=== PATIENT | male | born 1955 | race Native Hawaiian/Other Pacific Islander ===

== ENCOUNTER 2025-08-28 12:38 | Emergency (ER) | payer OTHER, SELFPAY ==
[2025-08-28] VITALS (23 sets, daily range): BP systolic 169–211; BP diastolic 100–126; PULSE 55–72; RESP 12–24; TEMP 36.6; O2SAT 94–97
--- NOTE | 2025-08-28 13:02 | ED_ITS ---
HPI - General Adult General Chief complaint: Chest Pain Stated complaint: Chest pain, high blood pressure Time Seen by Provider: 08/28/25 12:52 History of Present Illness HPI narrative: Patient presents to the emergency department complaining of GI pain. Patient states when he swallows even his saliva he gets pain from his throat to his stomach. Patient denies any nausea or vomiting. Pain has been going on for about 1 hour. Patient is also experiencing pain in his chest. 69-year-old man presenting to the emergency department with concern chest area pain. Apparently about an hour after eating breakfast started to have this pulsatile poking pain that goes from his throat down to his abdomen. It does last for some seconds and then resolves and then returns. Watching on monitor is throwing PVCs but these appear to be asymptomatic. Does not seem to have sore throat otherwise. Is not feeling lightheaded. No headache. They report a history of 2 strokes with some residual right arm numbness and temporary diplopia. Last stroke was June of last year. Sounds like was evaluated in [place]. Had diplopia for some months but that has now resolved. Does not take an aspirin regularly currently. Sounds as though have been getting contrary recommendations about taking it. Has a longstanding history of high blood pressure and takes metoprolol 50 mg daily. Has been taking it for the last couple of days but I believe missed the morning dose today. He had been without it for about 4 days. Was having some right hand pain and took a couple naproxen this morning. Related Data Allergies Allergy/AdvReac Type Severity Reaction Status Date / Time No Known Drug Allergies Allergy Verified 08/28/25 12:52 Review of Systems Status of ROS: Reports: 6 or more systems reviewed and unremarkable except as noted in History and below Exam Narrative: Exam Narrative: Pleasant. NAD. Breathing easily. Cranial nerves 2-12 intact. Funduscopic exam is challenging. Lungs are clear. Heart in regular to slower rate with intermittent ectopic beat I think. Abdomen is overweight soft nontender. No reproduction of chest pain to palpation across the chest wall. Extremities are well perfused. Without edema. Oropharynx is rather thick posteriorly. 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 Const: Vital Signs, click to edit/add: Vital Signs - 24 hr 08/28/25 12:43 08/28/25 13:05 08/28/25 13:06 Temperature 97.9 F Pulse Rate 55 L 63 Pulse Rate [Right Pulse Oximeter] 58 L Respiratory Rate 18 20 14 Blood Pressure 194/126 H Blood Pressure [Ri ght Upper Arm] 188/100 H Pulse Oximetry 97 94 94 Oxygen Delivery Me thod Room Air 08/28/25 13:15 08/28/25 13:30 08/28/25 13:35 Temperature Pulse Rate 66 57 L 59 L Pulse Rate [Right Pulse Oximeter] Respiratory Rate 15 22 Blood Pressure 211/119 H Blood Pressure [Ri ght Upper Arm] Pulse Oximetry 96 95 95 Oxygen Delivery Me thod 08/28/25 13:36 08/28/25 13:52 08/28/25 14:00 Temperature Pulse Rate 60 67 67 Pulse Rate [Right Pulse Oximeter] Respiratory Rate 24 12 20 Blood Pressure Blood Pressure [Ri ght Upper Arm] Pulse Oximetry 95 96 96 Oxygen Delivery Me thod 08/28/25 14:02 08/28/25 14:15 08/28/25 14:30 Temperature Pulse Rate 63 55 L 64 Pulse Rate [Right Pulse Oximeter] Respiratory Rate 17 18 Blood Pressure 192/116 H Blood Pressure [Ri ght Upper Arm] Pulse Oximetry 96 97 95 Oxygen Delivery Me thod 08/28/25 14:32 08/28/25 14:45 08/28/25 15:00 Temperature Pulse Rate 63 60 61 Pulse Rate [Right Pulse Oximeter] Respiratory Rate 14 19 18 Blood Pressure 184/113 H Blood Pressure [Ri ght Upper Arm] Pulse Oximetry 95 96 94 Oxygen Delivery Me thod 08/28/25 15:02 08/28/25 15:03 08/28/25 15:17 Temperature Pulse Rate 68 71 72 Pulse Rate [Right Pulse Oximeter] Respiratory Rate 20 Blood Pressure 187/115 H Blood Pressure [Ri ght Upper Arm] Pulse Oximetry 94 95 96 Oxygen Delivery Me thod 08/28/25 15:30 08/28/25 15:32 08/28/25 15:45 Temperature Pulse Rate 60 68 70 Pulse Rate [Right Pulse Oximeter] Respiratory Rate 19 22 Blood Pressure 184/109 H Blood Pressure [Ri ght Upper Arm] Pulse Oximetry 96 95 96 Oxygen Delivery Me thod 08/28/25 16:00 08/28/25 16:01 Temperature Pulse Rate 69 69 Pulse Rate [Right Pulse Oximeter] Respiratory Rate 15 18 Blood Pressure 169/103 H Blood Pressure [Ri ght Upper Arm] Pulse Oximetry 96 94 Oxygen Delivery Me thod Documenting provider has reviewed patient's vital signs: yes Course Vital Signs Vital signs: Initial Vital Signs Temperature 97.9 F 08/28/25 12:43 Temperature Source Temporal Artery Scan 08/28/25 12:43 Pulse Rate 58 L 08/28/25 12:43 Pulse Rhythm Regular 08/28/25 12:43 Pulse Strength 3+ Normal 08/28/25 12:43 Respiratory Rate 18 08/28/25 12:43 Blood Pressure 188/100 H 08/28/25 12:43 Blood Pressure Mean 129 H 08/28/25 12:43 Blood Pressure Position Supine 08/28/25 12:43 Pulse Oximetry 97 08/28/25 12:43 Oxygen Delivery Method Room Air 08/28/25 12:43 Vital Signs Temperature 97.9 F 08/28/25 12:43 Pulse Rate 58 L 08/28/25 12:43 Respiratory Rate 18 08/28/25 12:43 Blood Pressure 188/100 H 08/28/25 12:43 Pulse Oximetry 97 08/28/25 12:43 Oxygen Delivery Method Room Air 08/28/25 12:43 Temperature 97.9 F 08/28/25 12:43 Pulse Rate 69 08/28/25 16:01 Respiratory Rate 18 08/28/25 16:01 Blood Pressure 169/103 H 08/28/25 16:01 Pulse Oximetry 94 08/28/25 16:01 Oxygen Delivery Method Room Air 08/28/25 12:43 Medications Administered Medications: Discontinued Medications Generic Name Dose Route Start Last Admin Trade Name Jaziel PRN Reason Stop Dose Admin Amlodipine Besylate 5 mg 08/28/25 14:36 08/28/25 15:07 Amlodipine 5 Mg Tablet PO 08/28/25 14:37 5 mg ONCE ONE Administration Aspirin 81 mg 08/28/25 14:38 08/28/25 15:06 Aspirin 81 Mg Tab.Chew PO 08/28/25 14:39 81 mg ONCE ONE Administration Carvedilol 12.5 mg 08/28/25 14:36 08/28/25 15:06 Carvedilol 6.25 Mg Tablet PO 08/28/25 14:37 12.5 mg ONCE ONE Administration Chlorthalidone 25 mg 08/28/25 14:36 08/28/25 15:07 Chlorthalidone 25 Mg Tablet PO 08/28/25 14:37 25 mg ONCE ONE Administration Lidocaine/Aluminum/Magnesium/Simeth 30 ml 08/28/25 13:27 08/28/25 14:05 Gi Cocktail (Visc Lido/Antacid) 30 Ml PO 08/28/25 13:28 30 ml ONCE ONE Administration Medical Decision Making MDM Narrative Medical decision making narrative: Concern this could be ischemic cardiovascular disease. Seems relatively mild in description. Does not have stroke symptoms currently. I do not think pressures are likely to represent malignant hypertension. Discomfort as described might be reflux related. Does not seem to be pleuritic. Initial EKG is generally reassuring. Labs are unremarkable. Did offer GI cocktail which he did take. Symptoms already been settling a little bit but resolved after this dosing. Did show numerous PVCs during time of monitoring but did not seem to correlate with symptoms that he was describing. These were unifocal. Was able to reach provider from clinic at [facility] where he usually gets care. Able to review records and confirmed past medical and medications Mr. Brown is expected to be taking. He was given all of these medications though only half the expected dose of amlodipine. Is not actually to be taking metoprolol; this has someone else's name on it. There appears to be some confusion. Spent some discussing past medical and reasons for medications and actions of these medications. See patient discharge plan for further discussion I am not exactly sure what was causing this poking sensation in your chest. You do have some irregular heartbeats that are not serious and they do not seem to correlate with the chest discomfort you were describing; but evidently with your hand pain for some curious reason. As you know I spoke with Dr. Reynolds to clarify your medication and treatment. It sounds like you have appointment already established with her/[facility] for next week. Please do not take medications that do not have your name on them. I am prescribing the following medications for you to take daily based on what your clinic and doctor think you are or should be taking -- Amlodipine 10 mg daily Carvedilol 12.5 mg 2 times daily Chlorthalidone 25 mg daily Coated aspirin 81 mg daily The 1st 3 are specifically for your blood pressure. The aspirin is because you apparently have had some strokes. You received all of these medications here but only 5 mg of amlodipine to start with today instead of the usual 10 mg that you will be taking going forward. You will need to take another dose of carvedilol yet this evening. It was a pleasure to care for you here today. Medical Records Medical records reviewed: Yes I reviewed the patient's medical records Lab Data Lab results reviewed: Yes I reviewed the patient's lab results Labs: Lab Results 08/28/25 08/28/25 08/28/25 Range/Units 13:25 13:40 13:48 WBC 10.22 (4.50-11.00) K/uL RBC 5.38 (4.30-5.90) m/uL Hgb 15.8 (13.5-17.5) gm/dL Hct 45.3 (37.0-53.0) % MCV 84 (80-100) fL MCH 29 (26-34) pg MCHC 35 (32-36) gm/dL RDW Coeff of Reginald 12.7 (11.5-15.5) % Plt Count 269 (140-440) K/uL Neut % (Auto) 69.1 (42.0-72.0) % Lymph % (Auto) 21.9 (20-44) % [place] % (Auto) 7.6 (0.0-11.0) % Eos % (Auto) 1.2 (0.0-7.0) % Baso % (Auto) 0.1 (0.0-3.0) % Neut # (Auto) 7.06 H (1.7-7.0) K/uL Lymph # (Auto) 2.24 (0.90-2.90) K/uL [place] # (Auto) 0.80 (0.00-0.90) K/UL Eos # (Auto) 0.12 (0.00-0.50) K/uL Baso # (Auto) 0.01 (0.00-0.30) K/uL Abs Immat Gran (auto) 0.01 (0.00-0.30) K/uL Imm/Tot Granulo (auto) 0.1 % Sodium 137 (135-149) mmol/L Potassium 3.3 L (3.6-5.1) mmol/L Chloride 97 (96-114) mmol/L Carbon Dioxide 31 (20-32) mmol/L Anion Gap 9 (7-15) mEq/L BUN 13 (7-30) mg/dL Creatinine 1.0 (0.5-1.5) mg/dL Estimated GFR 81 ml/min Glucose 132 H (60-115) mg/dL Calcium 9.0 (8.4-10.6) mg/dL Total Bilirubin 1.4 (0.1-1.5) mg/dL Direct Bilirubin 0.3 (0.0-0.5) mg/dL AST 24 (12-35) U/L ALT 14 (4-50) U/L Alkaline Phosphatase 112 (40-150) U/L Troponin I < 0.01 (0.01-0.04) ng/mL Total Protein 7.7 (6.0-8.3) g/dL Albumin 3.7 (3.3-5.0) g/dL Urine Color Yellow (Yellow) Urine Appearance Clear (Clear) Urine pH 6.5 (5.0-8.5) Ur Specific [place] 1.010 (1.000-1.030) Urine Protein Negative (Negative) Urine Glucose (UA) Negative (Negative) Urine Ketones Negative (Negative) Urine Blood Trace-intact A (Negative) Urine Nitrite Negative (Negative) Urine Bilirubin Negative (Negative) Urine Urobilinogen 2.0 A (0.2-1.0) Ur Leukocyte Esterase Negative (Negative) Urine RBC 0-2 (0-2) Urine WBC 0-2 (0-5) Ur Squamous Epith Cells None (None-Few) Urine Bacteria None (None) POC Troponin I 0.00 L (0.01-0.04) ng/ml ECG Data Attestation: I personally reviewed and interpreted this ECG as follows: (Normal sinus rhythm. I do not appreciate ischemic changes. Rate of 66. repeatedly wandering baseline in V1) Discharge Plan Discharge Clinical Impression: Atypical chest pain, Premature ventricular contraction, High blood pressure Patient Disposition: Home w/ Parent or Adult Condition: Improved Additional Instructions: I am not exactly sure what was causing this poking sensation in your chest. You do have some irregular heartbeats that are not serious and they do not seem to correlate with the chest discomfort you were describing; but evidently with your hand pain for some curious reason. As you know I spoke with Dr. Reynolds to clarify your medication and treatment. It sounds like you have appointment already established with her/[facility] for next week. Please do not take medications that do not have your name on them. I am prescribing the following medications for you to take daily based on what your clinic and doctor think you are or should be taking -- Amlodipine 10 mg daily Carvedilol 12.5 mg 2 times daily Chlorthalidone 25 mg daily Coated aspirin 81 mg daily The 1st 3 are specifically for your blood pressure. The aspirin is because you apparently have had some strokes. You received all of these medications here but only 5 mg of amlodipine to start with today instead of the usual 10 mg that you will be taking going forward. You will need to take another dose of carvedilol yet this evening. It was a pleasure to care for you here today. No estoy seguro de qu? le causaba dante sensaci?n de pinchazo en el pecho. Tiene latidos irregulares que no son graves y no parecen estar relacionados con la molestia en el pecho que describ?a; kira evidentemente, por alguna extra?a marsha?n, con el dolor en la mano. [place] sabe, habl? con la Dra. Reynolds para aclarar patrick medicaci?n y tratamiento. Parece que ya tiene dalton con [facility] para la pr?xima semana. Por favor, no tome medicamentos que no tengan patrick nombre. Le receto los siguientes medicamentos para que los tome a diario, seg?n lo que patrick cl?sreedhar y patrick m?dico consideren que est? o deber?a estar tomando: Amlodipino 10 mg al d?a Carvedilol 12,5 mg 2 veces al d?a Clortalidona 25 mg al d?a Aspirina recubierta 81 mg al d?a Los jean-paul primeros son espec?ficos para la presi?n arterial. La aspirina se debe a que, al parecer, cuevas sufrido varios accidentes cerebrovasculares. Recibi? todos estos medicamentos aqu?, kiar solo 5 mg de amlodipino para empezar hoy, en lugar de los 10 mg habituales que benji? de ahora en adelante. Necesitar? benji otra dosis de carvedilol esta noche. Fue un placer atenderle hoy aqu?. Follow Up/Referrals: Provider,Not a Local [Primary Care Provider, Family Practice] Stand Alone Forms: [facility] Inst[facility]
[2025-08-28 13:48] LABS: Hematocrit* 45.3 % (37.0-53.0); Hemoglobin* 15.8 gm/dL (13.5-17.5); Immature Granulocytes Abs Auto 0.01 K/uL (0.00-0.30); Immature Granulocytes Pct Auto 0.1 %; Lymphocytes Absolute Auto 2.24 K/uL (0.90-2.90); Mean Corpuscular HGB Conc 35 gm/dL (32-36); Mean Corpuscular Hemoglobin 29 pg (26-34); Mean Corpuscular Volume 84 fL (80-100); RDW Coefficient of Variation % 12.7 % (11.5-15.5); Red Blood Count* 5.38 m/uL (4.30-5.90); White Blood Count* 10.22 K/uL (4.50-11.00)
[2025-08-28 13:57] LABS: Troponin, Point-of-Care* 0.00 ng/ml (0.01-0.04)
[2025-08-28 14:02] LABS: Appearance Urine Clear (Clear)
[2025-08-28 14:03] LABS: Slide Review Reflex No
[2025-08-28] MEDS: GI COCKTAIL (VISC LIDO/ANTACID) 30 ML PO (14:05)
[2025-08-28 14:09] LABS: Albumin* 3.7 g/dL (3.3-5.0); Chloride* 97 mmol/L (96-114); Potassium* 3.3 mmol/L (3.6-5.1); Sodium* 137 mmol/L (135-149)
--- OUTSIDE RECORDS SUMMARY | 2025-08-28 14:09 | XMS_ITS | Clinical Summary ---
[facility] Address [address], [place] [address] Care Team Providers Care Industrial Electrician Journeyman Name Role Phone Unavailable Primary Care Provider Unavailabl e Source Comments You are receiving this document as you are listed as the primary care provider,follow-up provider, or the patient has been referred to you for consultation.This is in compliance with the Medicare andOhiohealth Mans[facility] Hospitalcaid EHR Incentive Program,which states Providers who transition their patient to another setting of careor provider of care or refers their patient to another provider of care shouldprovide summary care record for each transition of care or referral. [facility] Allergies No known active allergies Medications diclofenac (VOLTAREN) 1 % gelIndications :gout pain Apply 2 g to skin 4 times a day. Indications: gout pain 400 g 3 06/10/2024 6:12 PM CDT 06/08/20 24 Active amLODIPine (NORVASC) 10 MG tabletIndicati ons:Hypertensi on,stroke Take 1 Tablet (10 mg) by mouth daily. Indications: High Blood Pressure Disorder, stroke 90 Tablet 3 06/10/2024 6:12 PM CDT 06/10/20 24 Active atorvastatin (LIPITOR) 20 MG tabletIndicati ons:Cerebrovas cular Accident Take 1 Tablet (20 mg) by mouth every evening. Indications: Cerebrovascular Accident or Stroke 90 Tablet 3 06/10/2024 6:12 PM CDT 06/10/20 24 Active lidocaine (ASPERCREAM) 4 % patchIndicatio ns:pain in elbow Apply 1 Patch to skin daily. Leave on for up to 12 hours in a 24 hour period, then remove. Indications: pain in elbow 30 Each 06/10/2024 6:12 PM CDT 06/10/20 24 Active carvedilol (COREG) 25 MG tabletIndicati ons:Hypertensi on Take 1 Tablet (25 mg) by mouth two times a day with meals. Indications: High Blood Pressure Disorder 180 Tablet 3 06/10/2024 6:12 PM CDT 06/10/20 24 Active chlorthalidone (HYGROTON) 25 MG tabletIndicati ons:Hypertensi on Take 1 Tablet (25 mg) by mouth daily. 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 No 06/06/2024 Humiliation, Afraid, Rape, and Kick questionnair e Answer Date Recorded Fear of Current or Ex-Partner Not on file Within the last year, have y ou been humiliated or emotionally abused in other ways by your partner or ex-partner? No 06/06/2024 Within the last year, have y ou been kicked, hit, slapped, or otherwise physically hurt by your partner or ex-partner? No 06/06/2024 Within the last year, have y ou been raped or forced to have any kind of sexual activity by your partner or ex-partner? No 06/06/2024 Hunger Vital Sign Answer Date Recorded Within the past 12 months, y ou worried that your food would run out before you got the money to buy more. Never true 06/06/20 24 Within the past 12 months, t he food you bought just didn't last and you didn't have money to get more. Never true 06/06/2024 PRAPARE - Transportation Answer Date Re corded In the past 12 months, has l ack of transportation kept you from medical appointments or from getting medications? No 11/2023 In the past 12 months, has l ack of transportation kept you from meetings, work, or from getting things needed for daily living? No 06/06/2024 Housing Stability Vital Sign Answer Kirit e Recorded In the last 12 months, was t here a time when you were not able to pay the mortgage or rent on time? No 06/06/2024 In the last 12 months, how many places have you lived? 2 06/06/2024 In the last 12 months, was t here a time when you did not have a steady place to sleep or slept in a chcf (including now)? No 06/06/2024 Sex and Gender Information Value Date Recorded Sex Assigned at Not on file Legal Sex Male 6:49 AM CDT Gender Identity Not on file Sexual Orientation Not on file Last Filed Vital Signs Vital Sign Reading Time Taken Comments Blood Pressure 157/85 06/10/2024 5:10 PM CDT Pulse 67 06/10/2024 5:10 PM CDT Temperature 36.9 C (98.4 F) 06/10/2024 5:10 PM CDT Respiratory Rate 17 06/10/2024 5:10 PM CDT Oxygen Saturation 95% 06/10/2024 5:10 PM CDT Inhaled Oxygen Concentration - - Weight 83.3 kg (183 lb 11.2 oz) 06/08/2024 6:43 AM CDT Height 157.5 cm (5' 2) 06/07/2024 1:22 PM CDT Body Mass Index 33.6 06/07/2024 1:22 PM CDT Plan of Treatment Health Maintenance Due Date Last Done Comments Colon Cancer Screening Plan Due 1955 Hep C Screening (Preventive Services) 1955 Tuberculosis Screening 1955 Adult Preventive Visit 1973 DTaP/Tdap/Td Vaccine (1 - Tdap) 1974 Pneumococcal Vaccine 50+ Yrs (1 of 1 - PCV) 2005 Zoster/Shingles Vaccine (1 of 2) 2005 COVID-19 Vaccine (1 - 2023-2 5 season) 2025 Influenza Vaccine (#1) 2025 Cholesterol 06/07/2029 06/07/2024 RSV Vaccine (1 - 1-dose 75+ series) 2030 HepA Vaccine Aged Out No longer eligi ble based on patient's age to complete this topic HepB Vaccine Aged Out No longer eligi ble based on patient's age to complete this topic Hib Vaccine Aged Out No longer eligi ble based on patient's age to complete this topic IPV (Polio) Vaccine Aged Out No longe r eligible based on patient's age to complete this topic MCV4 Vaccine Aged Out No longer eligi ble based on patient's age to complete this topic Meningococcal B Vaccine Aged Out No l onger eligible based on patient's age to complete this topic Procedures Procedure Name Priority Date/Time Associated Diagnosis Comments LIPID PANEL & DIRECT LDL (IF NEEDED) Routine 06/07/2024 3:17 AM CDT from Last 3 Months or Most Recently Relevant to Health Maintenance Results * Lipid Panel and Direct LDL(if needed) (06/07/2024 3:17 AM CDT) Cholesterol 142 0 - 199 mg/dL 06/07/2024 3:52 AM [facility] Triglyceride 102 <=149 mg/dL 06/07/2024 3:52 AM [facility] HDL Cholesterol 42 >=40 mg/dL 3:52 AM [facility] LDL, Calculated 80 <130 mg/dL 3:52 AM [facility] Non HDL Chol, Calculated 100 <=159 mg/dL 06/07/2024 3:52 AM [facility] Cholesterol/HDL Ratio 3.4 <=5.0 06/07/2024 3:52 AM [facility] Blood Venipuncture / Unknown 06/07/2024 3:17 AM CDT 06/07/2024 3:25 AM CDT us Leo Velarde MD LAB_1 Final Re sult [address] [address], [facility] from Last 3 Months or Most Recently Relevant to Health Maintenance Advance Directives * Full Code (Latest Code Status on File) Date Activated Date Inactivated Comments 06/06/2024 12:51 PM 06/10/2024 9:13 PM
[2025-08-28 14:11] LABS: Alanine Aminotransferase* 14 U/L (4-50); Anion Gap 9 mEq/L (7-15); Aspartate Amino Transferase* 24 U/L (12-35); Blood Urea Nitrogen* 13 mg/dL (7-30); Carbon Dioxide* 31 mmol/L (20-32); Creatinine* 1.0 mg/dL (0.5-1.5); Estimated Glomerular Filt Rate 81 ml/min
[2025-08-28 14:12] LABS: Alkaline Phosphatase* 112 U/L (40-150); Bilirubin Direct* 0.3 mg/dL (0.0-0.5); Bilirubin Total* 1.4 mg/dL (0.1-1.5); Calcium* 9.0 mg/dL (8.4-10.6); Glucose* 132 mg/dL (60-115); Total Protein* 7.7 g/dL (6.0-8.3)
[2025-08-28] MEDS: ASPIRIN 81 MG TAB.CHEW PO (15:06)
[2025-08-28] MEDS: CHLORTHALIDONE 25 MG TABLET PO (15:07)
[2025-08-28] MEDS: AMLODIPINE 5 MG TABLET PO (15:07)
== END 2025-08-28 16:25 | disposition home or self-care (01) ==
PROVIDERS: Emergency Provider Family Medicine
DX: R07.9 Chest pain, unspecified (principal); I49.3 Ventricular premature depolarization; I10 Essential (primary) hypertension
CPT/HCPCS: 36415; 80048; 80076; 81001; 84484; 85025; 93005; 99284; A9270